=== PATIENT | female | born 1930 ===

== ENCOUNTER 2016-08-01 07:16 | Day surgery (SDC) | payer MEDICARE, MEDICAID ==
[2013-09-14 16:29] VITALS: PULSE 138
[2016-08-01 07:45] VITALS: BMI 21.1
[2016-08-01 08:07] VITALS: TEMP 97.1
[2016-08-01] MEDS ORDERED: Lactated Ringer's 500 ML IV ONE (09:09)
--- NOTE | 2016-08-01 09:17 | CP.SDSHP ---
Same Day Surgery H & P - History Proposed Procedure: egd Pre-Op Diagnosis: recurrent nausea and vomiting. h/o ampullary cancer S/P Whipple. Weight loss - Previous Medical/Surgical History Cardiac: Hypertension Endocrine/Metabolic: Thyroid Disease, Diabetes Misc: Other (Ampullary cancer (2012), gerd, gastritis, diverticulosis) Previous Surgical History: Whipple 2012. ALISSON/BSO - Allergies Allergies: Allergies No Known Allergies Allergy (Unverified 09/13/13 20:32) - Physical Exam Vital Signs: Vital Signs 08/01/16 07:52 Temperature 97.1 F L Pulse Rate 77 Respiratory 17 Rate Blood Pressure 166/69 H O2 Sat by Pulse 99 Oximetry Mental Status: Alert & Oriented x3 Neuro: WNL Heart: WNL Lungs: WNL GI: WNL (well healed and large surgical scars in midline) - Impression Impression: recurrent N/V. ampullary cancer S/P Whipple. weight loss Pt. Evaluated Today:Candidate for Anesthesia & Procedure: Yes - Date & Time Date: 08/01/16 Time: :17 Short Stay Discharge - Short Stay Discharge Admitting Diagnosis/Reason for Visit: NAUSEA WITH VOMITING,ABNORMAL WEIGHT LOSS Disposition: HOME/ ROUTINE
[2016-08-01] MEDS ORDERED: Propofol 10 mg/ml Inj (20 ML) ONE (09:19)
[2016-08-01 09:23] VITALS: O2SAT 100
[2016-08-01 10:45] VITALS: BP 162/75; PULSE 71; RESP 15
== END 2016-08-01 10:35 | disposition home or self-care (01) ==
LOC: C.ENDO 07:16
PROVIDERS: ATTEND Internal Medicine Gastroenterology
DX: K21.0 Gastro-esophageal reflux disease with esophagitis (principal); Z90.3 Acquired absence of stomach [part of]; Z90.49 Acquired absence of other specified parts of digestive tract; Z85.89 Personal history of malignant neoplasm of other organs and systems; I10 Essential (primary) hypertension; E11.9 Type 2 diabetes mellitus without complications
CPT/HCPCS: 43239; 88305; 88312; 88313; 88342; J2704; J7120

== ENCOUNTER 2016-10-02 23:10 | Inpatient (IN) | payer MEDICARE, MEDICAID ==
[2016-10-02 23:11] VITALS: PULSE 138; BMI 21.1
[2016-10-03 00:25] LABS: HEMATOCRIT 34.1 % (34.0-47.0); MEAN PLATELET VOLUME 8.2 fL (7.2-11.7)
[2016-10-03 00:41] LABS: BASO # 0.1 K/uL (0.0-0.2); BASO % 0.6 % (0.0-2.0); EOS % 0.1 % (0.0-4.0); LYMPH # 0.9 K/uL (1.0-4.3); LYMPH % 5.4 % (20.0-40.0); MEAN CELL VOLUME 85.2 fL (81.0-99.0); MEAN CORPUSCULAR HEMOGLOBIN 26.9 pg (27.0-31.0); MEAN CORPUSCULAR HGB CONC 31.6 g/dL (33.0-37.0); MONO # 0.7 K/uL (0.0-0.8); MONO % 4.2 % (0.0-10.0); PLATELET COUNT 326 K/uL (130-400); RED CELL DISTRIBUTION WIDTH 16.2 % (11.5-14.5); WHITE BLOOD COUNT 15.8 K/uL (4.8-10.8)
[2016-10-03 00:51] LABS: CHLORIDE 105 mmol/L (98-107); SODIUM 138 mmol/L (132-148)
[2016-10-03 00:52] LABS: ALB/GLOB RATIO 1.1 (1.0-2.1); ALKALINE PHOSPHATASE 133 U/L (38-126); ALT/SGPT 14 U/L (9-52); AST/SGOT 31 U/L (14-36); BILIRUBIN,TOTAL 1.1 mg/dL (0.2-1.3); BLOOD UREA NITROGEN 17 mg/dL (7-17); CALCIUM 8.6 mg/dl (8.6-10.4); CARBON DIOXIDE 21 mmol/L (22-30); GFR AFRICAN-AMERICAN > 60; GLUCOSE,RANDOM 113 mg/dL (65-105); TOTAL PROTEIN 7.9 g/dL (6.3-8.3)
[2016-10-03] MEDS ORDERED: Morphine 4 MG/ML VIAL IV ONE (01:43)
[2016-10-03 02:19] LABS: NEUTROPHIL 88 % (50-75); TOTAL CELLS COUNTED 100
--- NOTE | 2016-10-03 03:04 | C.PDOC ---
History Of Present Illness A 86 y/o female c/o several episodes of vomiting since last night and abdominal discomfort. Pt denies diarrhea, constipation, recent travel, fever, chills, vaginal bleeding or discharge, hematuria, dysuria, or any other complaints. Time Seen by Provider: 10/03/16 01:30 Chief Complaint (Nursing): Abdominal Pain History Per: Patient History/Exam Limitations: no limitations Onset/Duration Of Symptoms: Days Current Symptoms Are (Timing): Still Present Severity: Mild Location Of Pain/Discomfort: Diffuse Quality Of Discomfort: Burning, "Pain" Exacerbating Factors: Food (possibly) Last Bowel Movement: Yesterday Recent travel outside of the [place]: No Additional History Per: Patient Abnormal Vaginal Bleeding: No Past Medical History Reviewed: Historical Data, Nursing Documentation, Vital Signs Vital Signs: Last Vital Signs Temp 99.4 F 10/03/16 04:29 Pulse 79 10/03/16 04:29 Resp 20 10/03/16 04:29 BP 152/77 H 10/03/16 04:29 Pulse Ox 100 10/03/16 05:26 - Medical History PMH: Anxiety, Arthritis, CHF, Hyperthyroidism, Malignancy (LIVER TUMOR REMOVED 9MO AGO), Osteoporosis Denies: Chronic Kidney Disease Family History: States: Unknown Family Hx - Social History Hx Tobacco Use: No Hx Alcohol Use: No Hx Substance Use: No Review Of Systems Constitutional: Negative for: Fever, Chills Gastrointestinal: Positive for: Vomiting, Abdominal Pain. Negative for: Diarrhea Genitourinary: Negative for: Dysuria, Hematuria, Vaginal Discharge, Vaginal Bleeding Physical Exam - Physical Exam Appears: Non-toxic, No Acute Distress Skin: Warm, Dry, Pale Head: Atraumatic, Normacephalic Eye(s): bilateral: Normal Inspection Oral Mucosa: Moist Chest: Symmetrical Cardiovascular: Rhythm Regular, No Murmur Respiratory: Normal Breath Sounds, No Accessory Muscle Use, No Wheezing Gastrointestinal/Abdominal: Soft, Tenderness (epigastric to LUQ region), No Guarding, No Rebound, Other (Mid lower abdominal scar) Back: Normal Inspection, No CVA Tenderness Neurological/Psych: Oriented x3, Normal Speech, Normal Cognition ED Course And Treatment - Laboratory Results Result Diagrams: 10/03/16 00:18 10/03/16 00:18 O2 Sat by Pulse Oximetry: 100 (RA) Pulse Ox Interpretation: Normal - CT Scan/US CT Abd/Pel Other Rad Studies (CT/US): Interpreted By Me, Read By Radiologist CT/US Interpretation: EXAM: CT Abdomen and Pelvis With Intravenous Contrast. CLINICAL HISTORY: 86 years old, female; Pain; Abdominal pain; Patient HX: 02-07; Additional info: Abd pain ,. epigastric, vomiting. TECHNIQUE: Axial computed tomography images of the abdomen and pelvis with intravenous contrast. This CT. exam was performed using one or more of the following dose reduction techniques: automated. exposure control, adjustment of the mA and/or kV according to patient size, and/or use of iterative. reconstruction technique. CONTRAST: 100 mL of [id number] administered intravenously. EXAM DATE/TIME: Exam ordered 10/03/2016 1:44 AM. COMPARISON: CT - ABDOMEN,PELVIS W/WO CONTRAST 02/08/2016 1:28:41 PM. FINDINGS: Lower thorax: No acute findings. ABDOMEN: Liver: Stable intrahepatic biliary air with stable appearance of the intrahepatic biliary system. Previous pancreatic resection. The pancreatic duct remains mildly dilated. Gallbladder and bile ducts: See above. Pancreas: There appears to be free fluid in the left upper quadrant. Correlate for pancreatitis. The. organ of origin however is uncertain. Spleen: Unremarkable. No splenomegaly. Adrenals: Unremarkable. No mass. Kidneys and ureters: Probable cysts in both kidneys. No hydronephrosis. Stomach and bowel: Gastric wall thickening is noted which reflect may reflect luminal collapse. versus gastritis but is nonspecific. The colon appears to be somewhat thick walled which is probably. related to mild colitis and possibly a component of luminal collapse or both. Moderate mild/moderate. fecal retention. Appendix: The appendix is not seen. PELVIS: Bladder: Mild stranding around the urinary bladder correlate for cystitis. Reproductive: Hysterectomy. ABDOMEN and PELVIS : Intraperitoneal space: See above. Bones/joints: Stable low density in the inferior pubic ramus fracture. Old right rib fractures. Degenerative change in the spine with spinal stenosis. Slight anterior subluxation of L4-L5 stable. T11 compression fracture is stable. Soft tissues: Ventral hernia. Vasculature : Unremarkable. No abdominal aortic aneurysm. Lymph nodes: Unremarkable. No enlarged lymph nodes. IMPRESSION: 1. There appears to be free fluid in the left upper quadrant. Correlate for pancreatitis. The organ of. origin however is uncertain. 2. Gastric wall thickening is noted which reflect may reflect luminal collapse versus gastritis but is. nonspecific. 3. Mild stranding around the urinary bladder correlate for cystitis. 4. The colon appears to be somewhat thick walled which is probably related to mild colitis and. possibly a component of luminal collapse or both. 5. The appendix is not seen. Progress Note: Impression: 86 y/o female c/o abdominal discomfort and several episodes of vomiting since last night. Plans: CT Abd/Pel, EKG, Morphine, Zofran , reassess. Patient is resting comfortably, abdomen remains soft, labs reviewed , Lipase 8,000+, with elev WBC. Case d/w Dr Osman who admits for Dr Flores and will admit pt to his service - Physician Consult Information Time Consulting Physician Contacted: 05:07 Physician Contacted: Gaetano Osman (Will admit ) Disposition - Disposition Disposition: HOSPITALIZED Disposition Time: 05:25 Condition: STABLE - Clinical Impression Clinical Impression: Acute pancreatitis - Scribe Statement The provider has reviewed the documentation as recorded by the Scribe Bhavin polanco All medical record entries made by the Silvestreibjon were at my direction and personally dictated by me. I have reviewed the chart and agree that the record accurately reflects my personal performance of the history, physical exam, medical decision making, and the department course for this patient. I have also personally directed, reviewed, and agree with the discharge instructions and disposition.
[2016-10-03] MEDS ORDERED: Iodixanol 320 MG/ML 100 ML BOTTLE IV ONE (03:07)
[2016-10-03] MEDS ORDERED: Dextrose 5%/0.9% NS 1,000 ML IV ONE (08:31)
--- NOTE | 2016-10-03 08:34 | CT ---
PROCEDURE: CT Abdomen and Pelvis with contrast HISTORY: abd pain , epigastric, vomiting COMPARISON: 02/08/2016. TECHNIQUE: Contrast dose: 100 cc of Omnipaque Radiation dose: Total exam DLP = 253 mGy-cm. This CT exam was performed using one or more of the following dose reduction techniques: Automated exposure control, adjustment of the mA and/or kV according to patient size, and/or use of iterative reconstruction technique. FINDINGS: LOWER THORAX: Unremarkable. LIVER: Unremarkable. No gross lesion or ductal dilatation. GALLBLADDER AND BILE DUCTS: Intrahepatic biliary air and cholecystectomy compatible with previous sphincterotomy. PANCREAS: Pancreatic duct dilatation with evidence of previous Whipple procedure. SPLEEN: Unremarkable. ADRENALS: Unremarkable. No mass. KIDNEYS AND URETERS: Small right upper pole renal cyst.. No hydronephrosis. No solid mass. VASCULATURE: Unremarkable. No aortic aneurysm. BOWEL: Anterior abdominal wall hernia containing small bowel loops.. No obstruction. No gross mural thickening. APPENDIX: Normal appendix. PERITONEUM: Fluid in the left upper quadrant. LYMPH NODES: Unremarkable. No enlarged lymph nodes. BLADDER: Unremarkable. REPRODUCTIVE: Hysterectomy.. BONES: Old right inferior pubic ramus fracture. OTHER FINDINGS: None. IMPRESSION: Fluid in the left upper quadrant with dilated pancreatic duct evidence of previous Whipple procedure. Status post cholecystectomy and sphincterotomy with intrahepatic biliary air. No gross abscess or phlegmon. Small anterior abdominal wall hernia. Overall with the exception of fluid in the left upper quadrant, no significant interval change.
[2016-10-03] MEDS: Dextrose 5%/0.9% NS 1,000 ML IV SCH ×3 (08:37→20:55)
--- NOTE | 2016-10-03 10:03 | CP.PCM.CON ---
History of Present Illness - History of Present Illness History of Present Illness: 86 yo female known to me from prior admissions and the office presents with abdominal pain, vomiting and elevated Lipase. Has had prior resection of ampullary tumor at [facility] (i believe) and has had outpatient imaging and endoscopy to evaluate. CT findings review and visualized. No etoh. Review of Systems - Constitutional Constitutional: Weight Loss - Cardiovascular Cardiovascular: absent: Chest Pain, Dyspnea, Irregular Heart Rhythm - Respiratory Respiratory: absent: Cough, Hemoptysis, Pain on Inspiration - Gastrointestinal Gastrointestinal: As Per HPI, Abdominal Pain, Nausea, Vomiting. absent: Change in Stool Character, Coffee Ground Emesis Past Patient History - Infectious Disease Hx of Infectious Diseases: None - Tetanus Immunizations Tetanus Immunization: Unknown - Past Medical History & Family History Past Medical History?: Yes - Past Social History Smoking Status: Never Smoked Alcohol: None Drugs: Denies Home Situation {Lives}: With Family - CARDIAC Hx Cardiac Disorders: Yes Hx Congestive Heart Failure: Yes - PULMONARY Hx Respiratory Disorders: No - NEUROLOGICAL Hx Neurological Disorder: No - HEENT Hx HEENT Problems: No - RENAL Hx Chronic Kidney Disease: No - ENDOCRINE/METABOLIC Hx Hyperthyroidism: Yes - HEMATOLOGICAL/ONCOLOGICAL Hx Blood Disorders: Yes Hx Cancer: Yes (Ampullary tumor resected at [facility]) Hx Cirrhosis: No Hx Hepatitis A: No Hx Hepatitis B: No Hx Hepatitis C: No - INTEGUMENTARY Hx Dermatological Problems: No - MUSCULOSKELETAL/RHEUMATOLOGICAL Hx Arthritis: Yes Hx Osteoporosis: Yes - GASTROINTESTINAL Hx Gastrointestinal Disorders: Yes Hx Bowel Surgery: No Hx Clostridium Difficile: No Hx Colitis: No Hx Colostomy: No Hx Constipation: No Hx Crohn's Disease: No Hx Diarrhea: No Hx Diverticulitis: No Hx Esophageal Varices: No Hx Fatty Liver Disease: No Hx Gall Bladder Disease: No Hx Gastritis: Yes Hx Gastroesophageal Reflux: Yes Hx Hemorrhoids: No Hx Ileostomy: No Hx Irritable Bowel: No Hx Liver Failure: No Hx Nausea: No Hx Pancreatitis: Yes HX Swallowing Problems: No - GENITOURINARY/GYNECOLOGICAL Hx Genitourinary Disorders: No - PSYCHIATRIC Hx Anxiety: Yes Hx Substance Use: No - SURGICAL HISTORY Hx Surgeries: Yes Hx Hysterectomy: Yes Other/Comment: OVARIAN CYST REMOVED,WHIPPLE - ANESTHESIA Hx Anesthesia: Yes Hx Anesthesia Reactions: No Hx Malignant Hyperthermia: No Meds Allergies/Adverse Reactions: Allergies Allergy/AdvReac Type Severity Reaction Status Date / Time No Known Allergies Allergy Unverified 09/13/13 20:32 - Medications Medications: Current Medications Dextrose/Sodium Chloride (Dextrose 5%/0.9% Ns 1000 Ml) 1,000 mls @ 100 mls/hr IV .Q10H [facility] Last Admin: 10/03/16 08:37 Dose: 100 mls/hr Methimazole (Tapazole) 10 mg PO DAILY [facility] Pantoprazole Sodium (Protonix Inj) 40 mg IVP DAILY [facility] Physical Exam - Constitutional Appears: No Acute Distress, Chronically Ill - Head Exam Head Exam: ATRAUMATIC, NORMOCEPHALIC - Eye Exam Eye Exam: EOMI, PERRL - Respiratory Exam Respiratory Exam: NORMAL BREATHING PATTERN - Cardiovascular Exam Cardiovascular Exam: REGULAR RHYTHM, +S1 - GI/Abdominal Exam GI & Abdominal Exam: Normal Bowel Sounds, Soft, Tenderness. absent: Distended, Mass, Rebound, Rigid - Rectal Exam Rectal Exam: Deferred - Extremities Exam Extremities exam: Positive for: normal inspection - Neurological Exam Neurological exam: Alert, Oriented x3 - Psychiatric Exam Psychiatric exam: Normal Affect, Normal Mood - Skin Skin Exam: Dry, Warm Results - Vital Signs Recent Vital Signs: Last Vital Signs Temp 98.9 F 10/03/16 07:20 Pulse 72 10/03/16 07:20 Resp 20 10/03/16 07:20 BP 143/77 10/03/16 07:20 Pulse Ox 98 10/03/16 07:20 - Labs Result Diagrams: 10/03/16 00:18 10/03/16 00:18 - Imaging and Cardiology CT scan - abdomen Status: Image reviewed by me, Report reviewed by me Assessment & Plan (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 Need to assess prior records from office tomorrow Treat with NPO and IV fluids Monitor labs and replace electrolytes and minerals as needed Supportive care in view of age Status: Acute
[2016-10-04] MEDS: Dextrose 5%/0.9% NS 1,000 ML IV SCH ×2 (05:39→13:32)
[2016-10-04 09:06] LABS: BASO # 0.1 K/uL (0.0-0.2); BASO % 0.9 % (0.0-2.0); EOS # 0.1 K/uL (0.0-0.7); EOS % 0.9 % (0.0-4.0); HEMATOCRIT 28.9 % (34.0-47.0); LYMPH # 1.3 K/uL (1.0-4.3); LYMPH % 16.9 % (20.0-40.0); MEAN CELL VOLUME 85.1 fL (81.0-99.0); MEAN CORPUSCULAR HEMOGLOBIN 27.7 pg (27.0-31.0); MEAN CORPUSCULAR HGB CONC 32.6 g/dL (33.0-37.0); MEAN PLATELET VOLUME 7.9 fL (7.2-11.7); MONO # 0.4 K/uL (0.0-0.8); MONO % 5.5 % (0.0-10.0); RED CELL DISTRIBUTION WIDTH 16.3 % (11.5-14.5)
[2016-10-04 09:09] LABS: WHITE BLOOD COUNT 7.8 K/uL (4.8-10.8)
[2016-10-04 09:22] LABS: CHLORIDE 106 mmol/L (98-107); POTASSIUM 3.8 mmol/L (3.6-5.2); SODIUM 138 mmol/L (132-148)
[2016-10-04 09:24] LABS: AMYLASE 73 U/L (30-110); GFR AFRICAN-AMERICAN > 60
[2016-10-04 09:25] LABS: ALB/GLOB RATIO 0.8 (1.0-2.1); ALKALINE PHOSPHATASE 90 U/L (38-126); ALT/SGPT 15 U/L (9-52); AST/SGOT 18 U/L (14-36); BILIRUBIN,DIRECT 0.2 mg/dL (0.0-0.4); BILIRUBIN,TOTAL 0.6 mg/dL (0.2-1.3); BLOOD UREA NITROGEN 12 mg/dL (7-17); CALCIUM 7.9 mg/dl (8.6-10.4); CARBON DIOXIDE 23 mmol/L (22-30); GLUCOSE,RANDOM 101 mg/dL (65-105); TOTAL PROTEIN 6.4 g/dL (6.3-8.3)
--- NOTE | 2016-10-04 11:11 | CP.PCM.PN ---
Subjective - Date & Time of Evaluation Date of Evaluation: 10/04/16 Time of Evaluation: 11:09 - Subjective Subjective: No further pain or vomiting Tolerating liquids Old records pending Objective - Vital Signs/Intake and Output Vital Signs (last 24 hours): Temp Pulse Resp BP Pulse Ox 98.1 F 70 19 153/78 H 98 10/04/16 08:00 10/04/16 08:00 10/04/16 08:00 10/04/16 08:00 10/04/16 08:00 Intake and Output: 10/04/16 10/04/16 06:59 18:59 Intake Total 1800 Balance 1800 - Medications Medications: Current Medications Dextrose/Sodium Chloride (Dextrose 5%/0.9% Ns 1000 Ml) 1,000 mls @ 100 mls/hr IV .Q10H [facility] Last Admin: 10/04/16 05:39 Dose: 100 mls/hr Methimazole (Tapazole) 10 mg PO DAILY [facility] Last Admin: 10/04/16 09:26 Dose: 10 mg Pantoprazole Sodium (Protonix Inj) 40 mg IVP DAILY [facility] Last Admin: 10/04/16 09:26 Dose: 40 mg - Labs Labs: 10/04/16 08:54 10/04/16 08:54 - Constitutional Appears: Cachectic - Head Exam Head Exam: ATRAUMATIC, NORMOCEPHALIC - Eye Exam Eye Exam: EOMI, PERRL - Respiratory Exam Respiratory Exam: NORMAL BREATHING PATTERN - Cardiovascular Exam Cardiovascular Exam: REGULAR RHYTHM, +S1 - GI/Abdominal Exam GI & Abdominal Exam: Soft, Hypoactive Bowel Sounds. absent: Guarding, Rigid, Tenderness, Mass, Rebound - Extremities Exam Extremities Exam: Normal Inspection Assessment and Plan (1) History of duodenal cancer Assessment & Plan: awaiting review of old records from office today. Has been disease free for past three years. No plan for invasive workup due to advanced age at this time. Status: Chronic (2) Epigastric pain Assessment & Plan: resolved and likely due to pancreatitis Status: Acute (3) Acute pancreatitis Assessment & Plan: Enzymes significantly improved. Continue supportive care and advance diet as tolerated. Status: Acute
--- NOTE | 2016-10-04 21:42 | CP.PCM.PN ---
Subjective - Date & Time of Evaluation Date of Evaluation: 10/04/16 Time of Evaluation: 21:41 - Subjective Subjective: pt is feeeling well no pain no vomiitng sleeping goodl had BM Objective - Vital Signs/Intake and Output Vital Signs (last 24 hours): Temp Pulse Resp BP Pulse Ox 97.8 F 78 20 150/75 98 10/04/16 16:00 10/04/16 16:00 10/04/16 16:00 10/04/16 16:00 10/04/16 16:00 Intake and Output: chest good air entry abd soft non tender - Medications Medications: Current Medications Dextrose/Sodium Chloride (Dextrose 5%/0.9% Ns 1000 Ml) 1,000 mls @ 100 mls/hr IV .Q10H [facility] Last Admin: 10/04/16 13:32 Dose: Not Given Methimazole (Tapazole) 10 mg PO DAILY [facility] Last Admin: 10/04/16 09:26 Dose: 10 mg Pantoprazole Sodium (Protonix Ec Tab) 40 mg PO DAILY [facility] - Labs Labs: 10/04/16 08:54 10/04/16 08:54 Assessment and Plan (1) Acute pancreatitis Assessment & Plan: acute pancreatitis stable will advance diet possible d/c in am work up as op Status: Acute (2) Epigastric pain Status: Acute
[2016-10-05 00:03] VITALS: O2SAT 97
[2016-10-05 08:29] VITALS: BP 153/89; PULSE 77; RESP 20; TEMP 99
[2016-10-05 09:44] LABS: CHLORIDE 107 mmol/L (98-107); POTASSIUM 3.8 mmol/L (3.6-5.2); SODIUM 143 mmol/L (132-148)
[2016-10-05 09:46] LABS: AST/SGOT 24 U/L (14-36); BILIRUBIN,TOTAL 0.8 mg/dL (0.2-1.3); CARBON DIOXIDE 23 mmol/L (22-30); GFR AFRICAN-AMERICAN > 60
[2016-10-05 09:47] LABS: ALKALINE PHOSPHATASE 117 U/L (38-126); ALT/SGPT 9 U/L (9-52); BLOOD UREA NITROGEN 14 mg/dL (7-17); CALCIUM 9.1 mg/dl (8.6-10.4); GLUCOSE,RANDOM 80 mg/dL (65-105); TOTAL PROTEIN 7.9 g/dL (6.3-8.3)
[2016-10-05] MEDS ORDERED: Pantoprazole 40 mg EC Tab PO SCH (10:00)
--- NOTE | 2016-10-05 13:40 | CP.PCM.PN ---
Subjective - Date & Time of Evaluation Date of Evaluation: 10/05/16 Time of Evaluation: 13:38 - Subjective Subjective: No pain, had bowel movement, tolerating diet thus far Review of office record shows extensive gastric bypass and resection of ampullary tumor three years ago. EGD done 2016 showed no evidence of obstruction or recurrent tumor. Patient has had some intermittent N/V related to gastritis but no obstruction. Objective - Vital Signs/Intake and Output Vital Signs (last 24 hours): Temp Pulse Resp BP Pulse Ox 99 F 77 20 153/89 H 97 10/05/16 08:00 10/05/16 08:00 10/05/16 08:00 10/05/16 08:00 10/05/16 08:00 - Medications Medications: Current Medications Methimazole (Tapazole) 10 mg PO DAILY [facility] Last Admin: 10/05/16 10:45 Dose: 10 mg Pantoprazole Sodium (Protonix Ec Tab) 40 mg PO DAILY [facility] Last Admin: 10/05/16 10:45 Dose: 40 mg - Labs Labs: 10/04/16 08:54 10/05/16 08:36 - Constitutional Appears: Cachectic - Head Exam Head Exam: ATRAUMATIC, NORMOCEPHALIC - Eye Exam Eye Exam: EOMI, PERRL - Respiratory Exam Respiratory Exam: NORMAL BREATHING PATTERN - Cardiovascular Exam Cardiovascular Exam: REGULAR RHYTHM - GI/Abdominal Exam GI & Abdominal Exam: Soft, Normal Bowel Sounds. absent: Firm, Guarding, Tenderness, Mass, Rebound Assessment and Plan (1) History of duodenal cancer Status: Resolved (2) Epigastric pain Status: Resolved (3) Acute pancreatitis Assessment & Plan: Enzymes now normal and patient is pain free Advance diet and discharge planning per DR Lopez No further work=up needed at this time Outpatient follow up with me as needed. Status: Resolved
--- NOTE | 2016-10-05 14:42 | CP.PCM.PN ---
Subjective - Date & Time of Evaluation Date of Evaluation: 10/05/16 Time of Evaluation: 14:00 - Subjective Subjective: Pt seen today states doing well , denies any abdominal pain, N/V/D,fever, chills , tolerating diet + BM vss- stable amylase, lipase back to normal Objective - Vital Signs/Intake and Output Vital Signs (last 24 hours): Temp Pulse Resp BP Pulse Ox 99 F 77 20 153/89 H 97 10/05/16 08:00 10/05/16 08:00 10/05/16 08:00 10/05/16 08:00 10/05/16 08:00 - Medications Medications: Current Medications Methimazole (Tapazole) 10 mg PO DAILY [facility] Last Admin: 10/05/16 10:45 Dose: 10 mg Pantoprazole Sodium (Protonix Ec Tab) 40 mg PO DAILY [facility] Last Admin: 10/05/16 10:45 Dose: 40 mg - Labs Labs: 10/04/16 08:54 10/05/16 08:36 - Constitutional Appears: Well, No Acute Distress - Respiratory Exam Respiratory Exam: Clear to Ausculation Bilateral, NORMAL BREATHING PATTERN - Cardiovascular Exam Cardiovascular Exam: REGULAR RHYTHM - GI/Abdominal Exam GI & Abdominal Exam: Soft, Normal Bowel Sounds Assessment and Plan - Assessment and Plan (Free Text) Assessment: A/P 86 YR old female admitted for acute pancreatitis a febrile amylase, lipase back to normal pt tolerating diet without any issues seen by Dr. Morales , no intervention , f/u out patient , cleared from GI standpoint for discharge home D/W with DR. Osman , stable for discharge home today and f/u with Dr. Olson office in 1 week Discharge plan discussed with patient via freezer operator, who understands and agrees with plan Pt instructed to returns to ED if symptoms returns or any other concerning symptoms
== END 2016-10-05 16:30 | disposition home or self-care (01) | DRG 440 ==
LOC: C.ER 23:10 → C.9E 10-03 05:13 → C.5T 10-03 09:59
PROVIDERS: ADMIT Internal Medicine; ATTEND Internal Medicine
DX: K85.90 Acute pancreatitis without necrosis or infection, unspecified (principal); I50.9 Heart failure, unspecified; F41.9 Anxiety disorder, unspecified; E05.90 Thyrotoxicosis, unspecified without thyrotoxic crisis or storm; M19.90 Unspecified osteoarthritis, unspecified site; M81.0 Age-related osteoporosis without current pathological fracture; K21.9 Gastro-esophageal reflux disease without esophagitis; Z85.068 Personal history of other malignant neoplasm of small intestine

== ENCOUNTER 2018-07-28 09:18 | Emergency (ER) | payer MEDICARE, MEDICAID ==
[2018-07-28 09:19] VITALS: PULSE 138; BMI 21.1
[2018-07-28 09:25] VITALS: RESP 18; O2SAT 99
[2018-07-28 12:05] VITALS: BP 176/71; PULSE 73; TEMP 98
--- NOTE | 2018-07-28 12:14 | C.PDOC ---
History Of Present Illness 87 y/o female presents to the ER complaining of left sided neck pain which has been present for the past 2 days. Patient states that the pain is similar to the pain she had in the past. Patient reports that her previous pain usually resolves, however the current episode of pain is still present. She notes that she took Tylenol with some relief. Denies having trauma, weakness, numbness ,and tingling in extremities. Time Seen by Provider: 07/28/18 10:51 Chief Complaint (Nursing): Upper Extremity Problem/Injury History Per: Patient History/Exam Limitations: no limitations Onset/Duration Of Symptoms: Days Current Symptoms Are (Timing): Still Present Severity: Moderate Past Medical History Reviewed: Historical Data, Nursing Documentation, Vital Signs Vital Signs: Last Vital Signs Temp 98.0 F 07/28/18 12:05 Pulse 73 07/28/18 12:05 Resp 18 07/28/18 12:05 BP 176/71 H 07/28/18 12:05 Pulse Ox 99 07/28/18 12:05 - Medical History PMH: Anxiety, Arthritis, CHF, Gastritis, Hyperthyroidism, Malignancy (LIVER TUMOR REMOVED 9MO AGO), Osteoporosis, Pancreatitis Denies: Crohn's Disease, Diverticulitis, Gall Bladder Disease, Chronic Kidney Disease Other Surgeries: Hx of surgeries Family History: States: No Known Family Hx - Social History Hx Tobacco Use: No Hx Alcohol Use: No Hx Substance Use: No - Immunization History Hx Tetanus Toxoid Vaccination: No Hx Influenza Vaccination: Yes Hx Pneumococcal Vaccination: Yes Review Of Systems Constitutional: Negative for: Fever, Chills Musculoskeletal: Positive for: Neck Pain Neurological: Negative for: Weakness, Numbness, Headache, Dizziness Physical Exam - Physical Exam Appears: Well, No Acute Distress Skin: Normal Color, Warm, Dry Head: Atraumatic, Normacephalic Eye(s): bilateral: Normal Inspection Nose: Normal Oral Mucosa: Moist Neck: Normal ROM, No Midline Cervical Tenderness, Supple, Other (mild tenderness to left lateral neck) Chest: Symmetrical Cardiovascular: Rhythm Regular Respiratory: Normal Breath Sounds, No Rales, No Rhonchi, No Wheezing Gastrointestinal/Abdominal: Normal Exam, Soft, No Tenderness, No Guarding, No Rebound Extremity: Normal ROM, No Tenderness, No Swelling Extremity: Bilateral: Bony Point Tenderness Pulses: Left Radial: Normal, Right Radial: Normal Neurological/Psych: Oriented x3, Normal Speech, Normal Cognition, Normal Motor, Normal Sensation ED Course And Treatment O2 Sat by Pulse Oximetry: 99 (RA) Pulse Ox Interpretation: Normal Medical Decision Making Medical Decision Makin pt feeling better. wants to go, will d/c with ibuprofen and pmd f/u Disposition Counseled Patient/Family Regarding: Diagnosis, Need For Followup, Rx Given - Disposition Referrals: Gaetano Osman MD [Staff Provider] - Disposition: HOME/ ROUTINE Disposition Time: 12:12 Condition: IMPROVED Additional Instructions: Hornick ibuprofeno por la maana (con comida) y despus de la fernando. Hornick Tylenol en el medio si es necesario. Folleto con el Dr. Osman. Compresas tibias alexys 15 minutos para el galen dolorosa. Take ibuprofen in morning (with food) and after dinner. Take Tylenol in between if needed. FOllow up with Dr Osman. Warm compresses for 15 minutes to painful area. Prescriptions: Ibuprofen [Ibu] 400 mg PO BID #20 tablet Instructions: Cervical Muscle Strain (DC) Forms: Gen Discharge Inst Bangladeshi, [employer] (Bangladeshi) Print Language: COLOMBIAN - Clinical Impression Clinical Impression: Cervical muscle strain - PA / SPECIAL SERVICES SUPERVISOR / Resident Statement MD/DO has reviewed & agrees with the documentation as recorded. - Scribe Statement The provider has reviewed the documentation as recorded by the Silvestreibe Uma Lovell Provider Attestation All medical record entries made by the Scribe were at my direction and personally dictated by me. I have reviewed the chart and agree that the record accurately reflects my personal performance of the history, physical exam, medical decision making, and the department course for this patient. I have also personally directed, reviewed, and agree with the discharge instructions and disposition.
== END 2018-07-28 12:30 | disposition home or self-care (01) ==
LOC: C.ER 09:18
DX: S16.1XXA Strain of muscle, fascia and tendon at neck level, initial encounter (principal); X58.XXXA Exposure to other specified factors, initial encounter

== ENCOUNTER 2018-08-04 09:30 | Outpatient (CLI) | payer MEDICARE, MEDICAID | END 2018-08-04 09:31 | disposition home or self-care (01) | LOC: C.RADIC 09:30 | DX: M62.838 Other muscle spasm (principal) ==